=== PATIENT | female | born 1965 | race Caucasian/White ===

== ENCOUNTER 2016-08-12 16:12 | Emergency (ER) | payer OTHER ==
--- NOTE | 2016-08-12 17:30 | DIAGNOSTIC IMAGING REPORT ---
PROCEDURE: XR FINGER - LEFT INDICATION: TRAUMA/INJURY TECHNIQUE: Four views. COMPARISON: None. FINDINGS: There is an oblique fracture through the middle phalanx of the fourth digit. There is minimal displacement. IMPRESSION: 1. Oblique fracture middle phalanx fourth digit
--- NOTE | 2016-08-12 17:32 | ED NURSING NOTES ---
Clinical Report - Nurses [facility] [address] [place] [address] 08/12/2016 16:12 Patient: ALEIDA WHITE TRIAGE Triage time 1630. Acuity: LEVEL 4. Chief Complaint: INJURY TO LEFT HAND. INJURY TO THE LEFT RING FINGER. --16:48 Rachael Moe R.N. 16:30 08/12/16. BP: 141/82. HR: 87. RR: 18. O2 saturation: 95% on room air. Temp: 98.5 F. Pain level now: 02/10. --16:48 Rachael Moe R.N. Weight: 75.7 kg measured. Height/Length: 67 inches Measured. BMI: 26.2. --16:47 Rachael Moe R.N. Medications Crestor Oral 10 mg, daily. LaMICtal Oral 100mg, daily. Omeprazole Oral 20 mg, daily. Paxil Oral 60, daily. --16:42 Rachael Moe R.N. Allergies No Known Drug Allergy. --16:42 Rachael Moe R.N. History Arrived by private vehicle. Historian: patient. Accompanied by friend. Primary physician (rupinder). This occurred just prior to arrival. Mechanism of injury: (breaking up dog fight, finger got twisted backward. c/o pain, swelling and decreased mobilty at DIP joint). PAST MEDICAL HX: The patient is post-menopausal. SOCIAL HX: Heavy tobacco smoker (cigarette)- 1 pack per day. No alcohol use or drug use. --16:48 Rachael Moe R.N. PROBLEMS: Lifestyle / Substance Problems. Hemorrhoids. Alcohol Intoxication. Substance Abuse. Conjunctivitis. Pharyngitis. Gastroesophageal Reflux. Hyperlipidemia. Chronic Back Pain. Bipolar Disorder. Anxiety Reaction. --16:41 Rachael Moe R.N. ADDITIONAL SURGERIES: . Endometrial oblation. Septal defect correction. Wrist surgery. --16:41 Abhi, Rachael, R.N. Interventions ID band on patient. To treatment room. --16:48 Rachael Moe R.N. PHYSICAL ASSESSMENT 06:30. Ambulatory to room. GENERAL / NEURO / PSYCH: Oriented X 4. Appears in pain. EXTREMITIES: Limited ROM present. Capillary refill is less than 2 seconds in the extremities. Left ring finger: tenderness and swelling. SKIN: Skin is warm and dry. --16:50 Rachael Moe R.N. NURSING PROGRESS NOTES 16:30. Cold pack applied. Reassurance given. Patient identifiers checked. Call light placed in reach. Side rails up. Bed placed in lowest position. Patient ready for evaluation- chart flagged. --16:49 Rachael Moe R.N. 16:51. Patient walked to radiology with tech. --17:00 Rachael Moe R.N. 17:00. Patient walked back to ED from radiology with tech. --17:00 Rachael Moe R.N. 17:35 08/12/2016 Hydrocodone-APAP (Hydrocodone-Acetaminophen) PO 5/325 mg Tablets 1 tab given. Allergies verified, confirmed 5 rights and sedative warning given to the patient. --19:20 Rachael Moe R.N. 17:30. Aluminum-foam finger splint applied to left ring finger by [employer]. Distal pulses intact, sensation intact and motor within normal limits (by [employer] sensor technician). --19:21 Rachael Moe R.N. DISPOSITION / DISCHARGE 17:40. Condition at departure: stable. No learning barriers present. Discharge instructions provided and reviewed with the patient and family. Reviewed medication(s) (tylenol #3, motrin). Treatments reviewed (ice, elevate, splint). Reviewed referrals ([facility]). Patient and family verbalized understanding. Written instructions provided in Cymro. The patient was discharged home and accompanied by family. She left the Emergency Department ambulatory and via private vehicle. Driving (son). --19:19 Rachael Moe R.N. 17:40 08/12/16. BP: 132/70. HR: 82. RR: 16. O2 saturation: 98%. Temp: deferred. Pain level now: 02/10. --19:19 Rachael Moe R.N. Locked/Released at 08/12/2016 19:21 by Rachael Moe R.N.
--- NOTE | 2016-08-12 17:32 | ED ORDER SUMMARY ---
..... Patient: ALEIDA WHITE OrderSheet [facility] VisitID: [id number] [address] [place] [address] 50y, F Registration Date/Time: 08/12/2016 ORDER SHEET Weight: 75.7 kg (measured) Allergies: No Known Drug Allergy GENERAL ORDERS: Finger Left (4th) Urgent (16:39 08/12/2016 DDean R.N. per protocol) (17:01 DDean R.N.) Splint (Finger) (Left) (Ring) (Aluminum Foam) (17:12 08/12/2016 EKmahinleva P.A.-C) (17:37 NHouse ER Tech1) MEDICATION ORDERS: Hydrocodone-APAP PO 5/325 mg (NOW, HIGH ALERT MEDICATION) (17:30 08/12/2016 EKmahinlejim P.A.-C) (Ack 17:36 DDean R.N.) (19:20 DDean R.N.) IV FLUIDS: ORDER SHEET NOTES: [Electronically signed by Jacqueline Polk P.A.-C (18:16 08/12/2016)] [Electronically signed by Rachael Moe R.N. (19:21 08/12/2016)] [Electronically locked/signed by Rachael Moe R.N. (19:21 08/12/2016)]
--- NOTE | 2016-08-12 17:32 | ED NURSING NOTES ---
Clinical Report - Nurses [facility] [address] [place] [address] 08/12/2016 16:12 Patient: ALEIDA WHITE TRIAGE Triage time 1630. Acuity: LEVEL 4. Chief Complaint: INJURY TO LEFT HAND. INJURY TO THE LEFT RING FINGER. --16:48 Rachael Moe R.N. 16:30 08/12/16. BP: 141/82. HR: 87. RR: 18. O2 saturation: 95% on room air. Temp: 98.5 F. Pain level now: 02/10. --16:48 Rachael Moe R.N. Weight: 75.7 kg measured. Height/Length: 67 inches Measured. BMI: 26.2. --16:47 Rachael Moe R.N. Medications Crestor Oral 10 mg, daily. LaMICtal Oral 100mg, daily. Omeprazole Oral 20 mg, daily. Paxil Oral 60, daily. --16:42 Rachael Moe R.N. Allergies No Known Drug Allergy. --16:42 Rachael Moe R.N. History Arrived by private vehicle. Historian: patient. Accompanied by friend. Primary physician (rupinder). This occurred just prior to arrival. Mechanism of injury: (breaking up dog fight, finger got twisted backward. c/o pain, swelling and decreased mobilty at DIP joint). PAST MEDICAL HX: The patient is post-menopausal. SOCIAL HX: Heavy tobacco smoker (cigarette)- 1 pack per day. No alcohol use or drug use. --16:48 Rachael Moe R.N. PROBLEMS: Lifestyle / Substance Problems. Hemorrhoids. Alcohol Intoxication. Substance Abuse. Conjunctivitis. Pharyngitis. Gastroesophageal Reflux. Hyperlipidemia. Chronic Back Pain. Bipolar Disorder. Anxiety Reaction. --16:41 Rachael Moe R.N. ADDITIONAL SURGERIES: . Endometrial oblation. Septal defect correction. Wrist surgery. --16:41 Abhi, Rachael, R.N. Interventions ID band on patient. To treatment room. --16:48 Rachael Moe R.N. PHYSICAL ASSESSMENT 06:30. Ambulatory to room. GENERAL / NEURO / PSYCH: Oriented X 4. Appears in pain. EXTREMITIES: Limited ROM present. Capillary refill is less than 2 seconds in the extremities. Left ring finger: tenderness and swelling. SKIN: Skin is warm and dry. --16:50 Rachael Moe R.N. NURSING PROGRESS NOTES 16:30. Cold pack applied. Reassurance given. Patient identifiers checked. Call light placed in reach. Side rails up. Bed placed in lowest position. Patient ready for evaluation- chart flagged. --16:49 Rachael Moe R.N. 16:51. Patient walked to radiology with tech. --17:00 Rachael Moe R.N. 17:00. Patient walked back to ED from radiology with tech. --17:00 Rachael Moe R.N. 17:35 08/12/2016 Hydrocodone-APAP (Hydrocodone-Acetaminophen) PO 5/325 mg Tablets 1 tab given. Allergies verified, confirmed 5 rights and sedative warning given to the patient. --19:20 Rachael Moe R.N. 17:30. Aluminum-foam finger splint applied to left ring finger by [employer]. Distal pulses intact, sensation intact and motor within normal limits (by [employer] communication technician). --19:21 Rachael Moe R.N. DISPOSITION / DISCHARGE 17:40. Condition at departure: stable. No learning barriers present. Discharge instructions provided and reviewed with the patient and family. Reviewed medication(s) (tylenol #3, motrin). Treatments reviewed (ice, elevate, splint). Reviewed referrals ([facility]). Patient and family verbalized understanding. Written instructions provided in Swazi. The patient was discharged home and accompanied by family. She left the Emergency Department ambulatory and via private vehicle. Driving (son). --19:19 Rachael Moe R.N. 17:40 08/12/16. BP: 132/70. HR: 82. RR: 16. O2 saturation: 98%. Temp: deferred. Pain level now: 02/10. --19:19 Rachael Moe R.N. Locked/Released at 08/12/2016 19:21 by Rachael Moe R.N.
--- NOTE | 2016-08-12 17:32 | ED ORDER SUMMARY ---
..... Patient: ALEIDA WHITE OrderSheet [facility] VisitID: [id number] [address] [place] [address] 50y, F Registration Date/Time: 08/12/2016 ORDER SHEET Weight: 75.7 kg (measured) Allergies: No Known Drug Allergy GENERAL ORDERS: Finger Left (4th) Urgent (16:39 08/12/2016 DDean R.N. per protocol) (17:01 DDean R.N.) Splint (Finger) (Left) (Ring) (Aluminum Foam) (17:12 08/12/2016 EKmahinleva P.A.-C) (17:37 NHouse ER Tech1) MEDICATION ORDERS: Hydrocodone-APAP PO 5/325 mg (NOW, HIGH ALERT MEDICATION) (17:30 08/12/2016 EKmahinlejim P.A.-C) (Ack 17:36 DDean R.N.) (19:20 DDean R.N.) IV FLUIDS: ORDER SHEET NOTES: [Electronically signed by Jacqueline Polk P.A.-C (18:16 08/12/2016)] [Electronically signed by Rachael Moe R.N. (19:21 08/12/2016)] [Electronically locked/signed by Rachael Moe R.N. (19:21 08/12/2016)]
--- NOTE | 2016-08-12 17:32 | ED CLINICAL REPORT ---
Clinical Report - Physicians/Mid Levels [facility] [address] [place] [address] 08/12/2016 16:12 Patient: ALEIDA WHITE Time Seen: 1699Aug 12 2016. Arrived- By private vehicle. Historian- patient. HISTORY OF PRESENT ILLNESS Chief Complaint: Injury to the left ring finger. The injury happened just prior to arrival. Occurred at home. The patient sustained a direct blow. ( R. index finger pain since attempting to stop a dog providing her dog and the dog park, reports finger being bent. Patient with pain to such since. Denies any prior injuries to the finger. Right-hand dominant.). REVIEW OF SYSTEMS No tingling or skin laceration. All systems otherwise negative, except as recorded above. PAST HISTORY The patient's dominant hand is the right. She has not had a prior injury to the same area. SOCIAL HISTORY Smoker- current status unknown. No alcohol use or drug use. ADDITIONAL NOTES The nursing notes have been reviewed. PHYSICAL EXAM Vital Signs: 08/12/2016 16:30 BP: 141/82. HR: 87. RR: 18. O2 saturation: 95%. Temp: 98.5 F. Pain level now: 7/10. Appearance: Alert. Head: Head atraumatic. CVS: Normal heart rate and rhythm. Heart sounds normal. Respiratory: No respiratory distress. Breath sounds normal. Skin: Skin warm. Skin intact. Extremities: Left ring finger: mild tenderness and deformity consistent with a fracture of the middle phalanx. No swelling or puncture wound. No subungual hematoma or amputation present. No wrist injury. Neuro, Vascular and Tendons: Vascular status intact. Motor intact. Neuro: Oriented X 3. LABS, X-RAYS, AND EKG Lt UE Digits X-ray: Digit fracture of the left upper extremity. Fracture of the middle phalanx, ring finger. (IMPRESSION: 1. Oblique fracture middle phalanx fourth digit Electronically Final signed by:Brennen Simon MD 08/12/2016 5:33:37 PM). PROGRESS AND PROCEDURES Splint Application: Time: 1754Aug 12 2016. Aluminum-foam dorsal splint applied to ring finger. Splint applied by tech with direct supervision by me. Reassessed extremity following splint application. Neurovascular intact. Follow-up recommended within 5 days. Course of Care: spiral fx, with no underlying displacement, with full sensation, no obvious tendon injury. Pt with no underlying rash/ laceration. Patient is stable. Patient/family counseled. Disposition: Discharged. CLINICAL IMPRESSION Closed displaced middle phalanx fracture of the left ring finger. No angulated fracture of the phalanx. INSTRUCTIONS Elevate affected areas above chest level. Wear splint. Limit use of your hand. ([facility]: [phone]). Prescription Medications: Tylenol with Codeine Tylenol #3 (30 mg / 300 mg) : take 1 tablet orally every 6 hours as needed for pain. Dispense fifteen (15). No refill. Substitution is permissible. Motrin 800 mg tablets: take 1 tablet orally every 8 hours for 5 days, as needed for pain. Dispense fifteen (15). No refill. Substitution is permissible. (Electronically signed by Jacqueline Polk P.A.-C 08/12/2016 18:16)
--- NOTE | 2016-08-12 17:32 | ED CLINICAL REPORT ---
Clinical Report - Physicians/Mid Levels [facility] [address] [place] [address] 08/12/2016 16:12 Patient: ALEIDA WHITE Time Seen: 1699Aug 12 2016. Arrived- By private vehicle. Historian- patient. HISTORY OF PRESENT ILLNESS Chief Complaint: Injury to the left ring finger. The injury happened just prior to arrival. Occurred at home. The patient sustained a direct blow. ( R. index finger pain since attempting to stop a dog providing her dog and the dog park, reports finger being bent. Patient with pain to such since. Denies any prior injuries to the finger. Right-hand dominant.). REVIEW OF SYSTEMS No tingling or skin laceration. All systems otherwise negative, except as recorded above. PAST HISTORY The patient's dominant hand is the right. She has not had a prior injury to the same area. SOCIAL HISTORY Smoker- current status unknown. No alcohol use or drug use. ADDITIONAL NOTES The nursing notes have been reviewed. PHYSICAL EXAM Vital Signs: 08/12/2016 16:30 BP: 141/82. HR: 87. RR: 18. O2 saturation: 95%. Temp: 98.5 F. Pain level now: 7/10. Appearance: Alert. Head: Head atraumatic. CVS: Normal heart rate and rhythm. Heart sounds normal. Respiratory: No respiratory distress. Breath sounds normal. Skin: Skin warm. Skin intact. Extremities: Left ring finger: mild tenderness and deformity consistent with a fracture of the middle phalanx. No swelling or puncture wound. No subungual hematoma or amputation present. No wrist injury. Neuro, Vascular and Tendons: Vascular status intact. Motor intact. Neuro: Oriented X 3. LABS, X-RAYS, AND EKG Lt UE Digits X-ray: Digit fracture of the left upper extremity. Fracture of the middle phalanx, ring finger. (IMPRESSION: 1. Oblique fracture middle phalanx fourth digit Electronically Final signed by:Brennen Simon MD 08/12/2016 5:33:37 PM). PROGRESS AND PROCEDURES Splint Application: Time: 1754Aug 12 2016. Aluminum-foam dorsal splint applied to ring finger. Splint applied by tech with direct supervision by me. Reassessed extremity following splint application. Neurovascular intact. Follow-up recommended within 5 days. Course of Care: spiral fx, with no underlying displacement, with full sensation, no obvious tendon injury. Pt with no underlying rash/ laceration. Patient is stable. Patient/family counseled. Disposition: Discharged. CLINICAL IMPRESSION Closed displaced middle phalanx fracture of the left ring finger. No angulated fracture of the phalanx. INSTRUCTIONS Elevate affected areas above chest level. Wear splint. Limit use of your hand. ([facility]: [phone]). Prescription Medications: Tylenol with Codeine Tylenol #3 (30 mg / 300 mg) : take 1 tablet orally every 6 hours as needed for pain. Dispense fifteen (15). No refill. Substitution is permissible. Motrin 800 mg tablets: take 1 tablet orally every 8 hours for 5 days, as needed for pain. Dispense fifteen (15). No refill. Substitution is permissible. (Electronically signed by Jacqueline Polk P.A.-C 08/12/2016 18:16)
--- NOTE | 2016-08-12 19:22 | ED DISCHARGE INSTRUCTIONS ---
Patient: ALEIDA WHITE General Instructions [facility] VisitID: [id number] [place] [address] 50y, F Registration Date/Time: 08/12/2016 Closed displaced middle phalanx fracture of the left ring finger. No angulated fracture of the phalanx. INSTRUCTIONS Elevate affected areas above chest level. Wear splint. Limit use of your hand. ([facility]: [phone]). Prescription Medications: Tylenol with Codeine Tylenol #3 (30 mg / 300 mg) : take 1 tablet orally every 6 hours as needed for pain. Dispense fifteen (15). No refill. Substitution is permissible. Motrin 800 mg tablets: take 1 tablet orally every 8 hours for 5 days, as needed for pain. Dispense fifteen (15). No refill. Substitution is permissible. ADDITIONAL INFORMATION Fracture: Finger [Closed] You have a fracture of your finger (broken finger). This causes local pain, swelling and bruising. This injury takes about four weeks to heal. Finger injuries are often treated with a splint, cast or by taping the injured finger to the next one ("faby taping"). This protects the injured finger and holds the bone in position while it heals. More serious fractures may require surgery. If the FINGERNAIL has been severely injured, it will probably fall off in 1-2 weeks. A new fingernail will usually start to grow back within a month. Home Care: 1) Keep your hand elevated to reduce pain and swelling. When sitting or lying down elevate your arm above the level of your heart. You can do this by placing your arm on a pillow that rests on your chest or on a pillow at your side. This is most important during the first 48 hours after injury. 2) Apply an ice pack (ice cubes in a plastic bag, wrapped in a towel) over the injured area for 20 minutes every 1-2 hours the first day for pain relief. Continue this 3-4 times a day until the pain and swelling goes away. 3) Keep the cast/splint completely dry at all times. Bathe with your cast/splint out of the water, protected with a large plastic bag, rubber-banded at the top end. If a fiberglass cast/splint gets wet, you can dry it with a hair-dryer. 4) If faby tape was applied and it becomes wet or dirty, change it. You may replace it with paper, plastic or cloth tape. Cloth tape and paper tapes must be kept dry. Keep the faby tape in place for at least four weeks. 5) You may use acetaminophen (Tylenol) or ibuprofen (Motrin, Advil) to control pain, unless another pain medicine was prescribed. [ NOTE : If you have chronic liver or kidney disease or ever had a stomach ulcer or GI bleeding, talk with your doctor before using these medicines.] Follow Up with your doctor within one week, or as advised by our staff, to be sure the bone is healing properly, . [NOTE: A radiologist will review any X-rays that were taken. We will notify you of any new findings that may affect your care.] Get Prompt Medical Attention if any of the following occur: -- The plaster cast or splint becomes wet or soft -- The fiberglass cast or splint remains wet for more than 24 hours -- Pain or swelling increases -- Redness, warmth, swelling, drainage from the wound or foul odor from a cast or splint -- Finger becomes more cold, blue, numb or tingly Acetaminophen, Codeine Phosphate Oral tablet What is this medicine? ACETAMINOPHEN; CODEINE (a set a REBA onur fen; KOE matt) is a pain reliever. It is used to treat mild to moderate pain. How should I use this medicine? Take this medicine by mouth with a full glass of water. Follow the directions on the prescription label. If the medicine upsets your stomach, take the medicine with food or milk. Do not take more medicine than you are told to take. Talk to your palliative medicine physician regarding the use of this medicine in children. Special care may be needed. What side effects may I notice from receiving this medicine? Side effects that you should report to your doctor or health rn acute care as soon as possible: allergic reactions like skin rash, itching or hives, swelling of the face, lips, or tongue breathing difficulties, wheezing confusion light headedness or fainting spells severe stomach pain yellowing of the skin or the whites of the eyes Side effects that usually do not require medical attention (report to your doctor or health rn acute care if they continue or are bothersome): dizziness drowsiness nausea, vomiting What may interact with this medicine? alcohol antihistamines benztropine drugs for bladder problems like solifenacin, trospium, oxybutynin, tolterodine, hycosamine, and methscopolamine drugs for breathing problems like ipratropium and tiotropium drugs for certain stomach or intestine problems like propantheline, homatropine methylbromide, glycopyrrolate, atropine, belladonna, and dicyclomine medicines for depression, anxiety, or psychotic disturbances medicines for sleep muscle relaxants naltrexone narcotic medicines (opiates) for pain phenothiazines like perphenazine, thioridazine, chlorpromazine, mesoridazine, fluphenazine, prochlorperazine, promazine, trifluoperazine scopolamine tramadol trihexyphenidyl What if I miss a dose? If you miss a dose, take it as soon as you can. If it is almost time for your next dose, take only that dose. Do not take double or extra doses. Where should I keep my medicine? Keep out of the reach of children. This medicine can be abused. Keep your medicine in a safe place to protect it from theft. Do not share this medicine with anyone. Selling or giving away this medicine is dangerous and against the law. Store at room temperature between 15 and 30 degrees C (59 and 86 degrees F). Protect from light. Keep container tightly closed. Throw away any unused medicine after the expiration date. Discard unused medicine and used packaging carefully. Pets and children can be harmed if they find used or lost packages. What should I tell my health care provider before I take this medicine? They need to know if you have any of these conditions: brain tumor Crohn's disease, inflammatory bowel disease, or ulcerative colitis drink more than 3 alcohol containing drinks per day drug abuse or addiction head injury heart or circulation problems kidney disease or problems going to the bathroom liver disease lung disease, asthma, or breathing problems an unusual or allergic reaction to acetaminophen, codeine, salicylates, other opioid analgesics, other medicines, foods, dyes, or preservatives or trying to get breast-feeding What should I watch for while using this medicine? Tell your doctor or health rn acute care if your pain does not go away, if it gets worse, or if you have new or a different type of pain. You may develop tolerance to the medication. Tolerance means that you will need a higher dose of the medication for pain relief. Tolerance is normal and is expected if you take the medicine for a long time. Do not suddenly stop taking your medicine because you may develop a severe reaction. Your body becomes used to the medicine. This does NOT mean you are addicted. Addiction is a behavior related to getting and using a drug for a non medical reason. If you have pain, you have a medical reason to take pain medicine. Your doctor will tell you how much medicine to take. If your doctor wants you to stop the medicine, the dose will be slowly lowered over time to avoid any side effects. You may get drowsy or dizzy. Do not drive, use machinery, or do anything that needs mental alertness until you know how this medicine affects you. Do not stand or sit up quickly, especially if you are an older patient. This reduces the risk of dizzy or fainting spells. Alcohol may interfere with the effect of this medicine. Avoid alcoholic drinks. There are different types of narcotic medicines (opiates) for pain. If you take more than one type at the same time, you may have more side effects. Give your health care provider a list of all medicines you use. Your doctor will tell you how much medicine to take. Do not take more medicine than directed. Call emergency for help if you have problems breathing. The medicine will cause constipation. Try to have a bowel movement at least every 2 to 3 days. If you do not have a bowel movement for 3 days, call your doctor or health rn acute care. Do not take Tylenol (acetaminophen) or medicines that have acetaminophen with this medicine. Too much acetaminophen can be very dangerous. Many nonprescription medicines contain acetaminophen. Always read the labels carefully to avoid taking more acetaminophen. Immediately call your physician or get emergency help if you are breast-feeding and your baby is sleepier than usual, is limp, or has difficulty or breathing. You have been given the following additional information: Fracture, Finger (Closed) Acetaminophen, Codeine Phosphate Oral tablet Limit use of your hand. (Electronically signed by Jacqueline Polk P.A.-C 08/12/2016 18:16)
--- NOTE | 2016-08-12 19:22 | ED MAR SUMMARY ---
..... Medication Administration Record [facility] [address] [place] [place] [address] Patient: ALEIDA WHITE Visit ID: [id number] 50y, F Weight: 75.7 kg Height/Length: 67 in BMI: 26.2 ALLERGIES: No Known Drug Allergy Given 17:35 08/12/2016 AbhiRachael R.N. Medication Administered: HYDROCODONE-APAP [PO] (HYDROCODONE-ACETAMINOPHEN), Dose: 1 tab 5/325 mg Tablets PO. Medication Ordered: Hydrocodone-APAP PO 5/325 mg (NOW, HIGH ALERT MEDICATION).
--- NOTE | 2016-08-12 19:22 | ED DISCHARGE INSTRUCTIONS ---
Patient: ALEIDA WHITE General Instructions [facility] VisitID: [id number] [place] [address] 50y, [place] Registration Date/Time: 08/12/2016 Closed displaced middle phalanx fracture of the left ring finger. No angulated fracture of the phalanx. INSTRUCTIONS Elevate affected areas above chest level. Wear splint. Limit use of your hand. ([facility]: [phone]). Prescription Medications: Tylenol with Codeine Tylenol #3 (30 mg / 300 mg) : take 1 tablet orally every 6 hours as needed for pain. Dispense fifteen (15). No refill. Substitution is permissible. Motrin 800 mg tablets: take 1 tablet orally every 8 hours for 5 days, as needed for pain. Dispense fifteen (15). No refill. Substitution is permissible. ADDITIONAL INFORMATION Fracture: Finger [Closed] You have a fracture of your finger (broken finger). This causes local pain, swelling and bruising. This injury takes about four weeks to heal. Finger injuries are often treated with a splint, cast or by taping the injured finger to the next one ("faby taping"). This protects the injured finger and holds the bone in position while it heals. More serious fractures may require surgery. If the FINGERNAIL has been severely injured, it will probably fall off in 1-2 weeks. A new fingernail will usually start to grow back within a month. Home Care: 1) Keep your hand elevated to reduce pain and swelling. When sitting or lying down elevate your arm above the level of your heart. You can do this by placing your arm on a pillow that rests on your chest or on a pillow at your side. This is most important during the first 48 hours after injury. 2) Apply an ice pack (ice cubes in a plastic bag, wrapped in a towel) over the injured area for 20 minutes every 1-2 hours the first day for pain relief. Continue this 3-4 times a day until the pain and swelling goes away. 3) Keep the cast/splint completely dry at all times. Bathe with your cast/splint out of the water, protected with a large plastic bag, rubber-banded at the top end. If a fiberglass cast/splint gets wet, you can dry it with a hair-dryer. 4) If faby tape was applied and it becomes wet or dirty, change it. You may replace it with paper, plastic or cloth tape. Cloth tape and paper tapes must be kept dry. Keep the faby tape in place for at least four weeks. 5) You may use acetaminophen (Tylenol) or ibuprofen (Motrin, Advil) to control pain, unless another pain medicine was prescribed. [ NOTE : If you have chronic liver or kidney disease or ever had a stomach ulcer or GI bleeding, talk with your doctor before using these medicines.] Follow Up with your doctor within one week, or as advised by our staff, to be sure the bone is healing properly, . [NOTE: A radiologist will review any X-rays that were taken. We will notify you of any new findings that may affect your care.] Get Prompt Medical Attention if any of the following occur: -- The plaster cast or splint becomes wet or soft -- The fiberglass cast or splint remains wet for more than 24 hours -- Pain or swelling increases -- Redness, warmth, swelling, drainage from the wound or foul odor from a cast or splint -- Finger becomes more cold, blue, numb or tingly Acetaminophen, Codeine Phosphate Oral tablet What is this medicine? ACETAMINOPHEN; CODEINE (a set a REBA onur fen; KOE matt) is a pain reliever. It is used to treat mild to moderate pain. How should I use this medicine? Take this medicine by mouth with a full glass of water. Follow the directions on the prescription label. If the medicine upsets your stomach, take the medicine with food or milk. Do not take more medicine than you are told to take. Talk to your rn digestive regarding the use of this medicine in children. Special care may be needed. What side effects may I notice from receiving this medicine? Side effects that you should report to your doctor or health director medicare sales as soon as possible: allergic reactions like skin rash, itching or hives, swelling of the face, lips, or tongue breathing difficulties, wheezing confusion light headedness or fainting spells severe stomach pain yellowing of the skin or the whites of the eyes Side effects that usually do not require medical attention (report to your doctor or health director medicare sales if they continue or are bothersome): dizziness drowsiness nausea, vomiting What may interact with this medicine? alcohol antihistamines benztropine drugs for bladder problems like solifenacin, trospium, oxybutynin, tolterodine, hycosamine, and methscopolamine drugs for breathing problems like ipratropium and tiotropium drugs for certain stomach or intestine problems like propantheline, homatropine methylbromide, glycopyrrolate, atropine, belladonna, and dicyclomine medicines for depression, anxiety, or psychotic disturbances medicines for sleep muscle relaxants naltrexone narcotic medicines (opiates) for pain phenothiazines like perphenazine, thioridazine, chlorpromazine, mesoridazine, fluphenazine, prochlorperazine, promazine, trifluoperazine scopolamine tramadol trihexyphenidyl What if I miss a dose? If you miss a dose, take it as soon as you can. If it is almost time for your next dose, take only that dose. Do not take double or extra doses. Where should I keep my medicine? Keep out of the reach of children. This medicine can be abused. Keep your medicine in a safe place to protect it from theft. Do not share this medicine with anyone. Selling or giving away this medicine is dangerous and against the law. Store at room temperature between 15 and 30 degrees C (59 and 86 degrees F). Protect from light. Keep container tightly closed. Throw away any unused medicine after the expiration date. Discard unused medicine and used packaging carefully. Pets and children can be harmed if they find used or lost packages. What should I tell my health care provider before I take this medicine? They need to know if you have any of these conditions: brain tumor Crohn's disease, inflammatory bowel disease, or ulcerative colitis drink more than 3 alcohol containing drinks per day drug abuse or addiction head injury heart or circulation problems kidney disease or problems going to the bathroom liver disease lung disease, asthma, or breathing problems an unusual or allergic reaction to acetaminophen, codeine, salicylates, other opioid analgesics, other medicines, foods, dyes, or preservatives or trying to get breast-feeding What should I watch for while using this medicine? Tell your doctor or health director medicare sales if your pain does not go away, if it gets worse, or if you have new or a different type of pain. You may develop tolerance to the medication. Tolerance means that you will need a higher dose of the medication for pain relief. Tolerance is normal and is expected if you take the medicine for a long time. Do not suddenly stop taking your medicine because you may develop a severe reaction. Your body becomes used to the medicine. This does NOT mean you are addicted. Addiction is a behavior related to getting and using a drug for a non medical reason. If you have pain, you have a medical reason to take pain medicine. Your doctor will tell you how much medicine to take. If your doctor wants you to stop the medicine, the dose will be slowly lowered over time to avoid any side effects. You may get drowsy or dizzy. Do not drive, use machinery, or do anything that needs mental alertness until you know how this medicine affects you. Do not stand or sit up quickly, especially if you are an older patient. This reduces the risk of dizzy or fainting spells. Alcohol may interfere with the effect of this medicine. Avoid alcoholic drinks. There are different types of narcotic medicines (opiates) for pain. If you take more than one type at the same time, you may have more side effects. Give your health care provider a list of all medicines you use. Your doctor will tell you how much medicine to take. Do not take more medicine than directed. Call emergency for help if you have problems breathing. The medicine will cause constipation. Try to have a bowel movement at least every 2 to 3 days. If you do not have a bowel movement for 3 days, call your doctor or health director medicare sales. Do not take Tylenol (acetaminophen) or medicines that have acetaminophen with this medicine. Too much acetaminophen can be very dangerous. Many nonprescription medicines contain acetaminophen. Always read the labels carefully to avoid taking more acetaminophen. Immediately call your physician or get emergency help if you are breast-feeding and your baby is sleepier than usual, is limp, or has difficulty or breathing. You have been given the following additional information: Fracture, Finger (Closed) Acetaminophen, Codeine Phosphate Oral tablet Limit use of your hand. (Electronically signed by Jacqueline Polk P.A.-C 08/12/2016 18:16)
--- NOTE | 2016-08-12 19:22 | ED MED RECONCILIATION SUMMARY ---
Patient: ALEIDA WHITE Medication Reconciliation Report [facility] VisitID: [id number] [address] [place] [address] 50y, F Registration Date/Time: 08/12/2016 Weight: 75.7 kg Height/Length: 67 in. BMI: 26.2 ALLERGIES: No Known Drug Allergy The patient's Home Medications are listed below: THE FOLLOWING MEDICATIONS NEED TO BE RECONCILED: Crestor Oral 10 mg, daily LaMICtal Oral 100mg, daily Omeprazole Oral 20 mg, daily Paxil Oral 60, daily The source(s) of the original Home Medication information: Not obtained. The following Medications were given to the patient in the Emergency Department: Hydrocodone-APAP [PO] PO 1 tab, administered: 08/12/2016 5:35:00 PM The following Medications were prescribed to the patient: Tylenol with Codeine Tylenol #3 (30 mg / 300 mg) : take 1 tablet orally every 6 hours as needed for pain. Dispense fifteen (15). No refill. Substitution is permissible. -- Jacqueline Polk, P.A.-Carlos Motrin 800 mg tablets: take 1 tablet orally every 8 hours for 5 days, as needed for pain. Dispense fifteen (15). No refill. Substitution is permissible. -- Jacqueline Polk, P.A.-C
--- NOTE | 2016-08-12 19:22 | ED MAR SUMMARY ---
..... Medication Administration Record [facility] [address] [place] [address] Patient: ALEIDA WHITE Visit ID: [id number] 50y, F Weight: 75.7 kg Height/Length: 67 in BMI: 26.2 ALLERGIES: No Known Drug Allergy Given 17:35 08/12/2016 AbhiRachael R.N. Medication Administered: HYDROCODONE-APAP [PO] (HYDROCODONE-ACETAMINOPHEN), Dose: 1 tab 5/325 mg Tablets PO. Medication Ordered: Hydrocodone-APAP PO 5/325 mg (NOW, HIGH ALERT MEDICATION).
--- NOTE | 2016-08-12 19:22 | ED MED RECONCILIATION SUMMARY ---
Patient: ALEIDA WHITE Medication Reconciliation Report [facility] VisitID: [id number] [address] [place] [address] 50y, F Registration Date/Time: 08/12/2016 Weight: 75.7 kg Height/Length: 67 in. BMI: 26.2 ALLERGIES: No Known Drug Allergy The patient's Home Medications are listed below: THE FOLLOWING MEDICATIONS NEED TO BE RECONCILED: Crestor Oral 10 mg, daily LaMICtal Oral 100mg, daily Omeprazole Oral 20 mg, daily Paxil Oral 60, daily The source(s) of the original Home Medication information: Not obtained. The following Medications were given to the patient in the Emergency Department: Hydrocodone-APAP [PO] PO 1 tab, administered: 08/12/2016 5:35:00 PM The following Medications were prescribed to the patient: Tylenol with Codeine Tylenol #3 (30 mg / 300 mg) : take 1 tablet orally every 6 hours as needed for pain. Dispense fifteen (15). No refill. Substitution is permissible. -- Jacqueline Polk, P.A.-Carlos Motrin 800 mg tablets: take 1 tablet orally every 8 hours for 5 days, as needed for pain. Dispense fifteen (15). No refill. Substitution is permissible. -- Jacqueline Polk, P.A.-C
== END 2016-08-12 17:40 | disposition home or self-care (01) ==
LOC: ED SRH 16:12
DX: S62.621A Displaced fracture of middle phalanx of left index finger, initial encounter for closed fracture (principal); W22.8XXA Striking against or struck by other objects, initial encounter; Y93.89 Activity, other specified; Y92.009 Unspecified place in unspecified non-institutional (private) residence as the place of occurrence of the external cause; Y99.9 Unspecified external cause status; K21.9 Gastro-esophageal reflux disease without esophagitis; E78.5 Hyperlipidemia, unspecified; Z79.899 Other long term (current) drug therapy